=== PATIENT | male | born 1970 | race Two or more races ===

== ENCOUNTER 2017-04-03 09:32 | Emergency (ER) | payer SELFPAY ==
[~2017-04-03] VITALS: Ht 167.6 cm; Wt 73.4 kg
[2017-04-03] MEDS ORDERED: CefTRIAXone 250MG IM Kit w/LIDOcaine IM ONE (09:40)
[2017-04-03] MEDS ORDERED: azithromycin 250mg tablet PO ONE (09:40)
[2017-04-03] MEDS ORDERED: ondansetron 4mg rapidly disintigrating tab PO ONE (09:40)
[2017-04-03 10:49] LABS: CLARITY,URINE CLEAR (Clear); COLOR,URINE YELLOW (Yellow); GLUCOSE, URINE NEGATIVE (Neg); KETONES,URINE TRACE mg/dl (Neg); LEUKOCYTE ESTERASE ,URINE NEGATIVE (Neg); NITRITES, URINE NEGATIVE (Neg); OCCULT BLOOD,URINE NEGATIVE (Neg); PH,URINE 5.5 (4.8-8.0); PROTEIN,URINE NEGATIVE (Neg); UROBILINOGEN,URINE 0.2 E.U/dL (0.2-1.0)
[2017-04-03 10:50] LABS: UA COLLECTION TYPE VOIDED
[2017-04-03] MEDS ORDERED: DOXY100C43 PO (10:55)
[2017-04-03 11:20] VITALS: BP 137/80
== END 2017-04-03 11:25 | disposition home or self-care (01) ==
LOC: ER 09:37
DX: A63.8 Other specified predominantly sexually transmitted diseases (principal); F12.10 Cannabis abuse, uncomplicated; Z87.442 Personal history of urinary calculi
CPT/HCPCS: 36415; 81003; 87491; 87591; 96372; 99284; J0696

== ENCOUNTER 2017-04-17 08:21 | Emergency (ER) | payer MEDICAID ==
[~2017-04-17] VITALS: Ht 167.6 cm; Wt 73.0 kg
[2017-04-17 08:36] VITALS: BP 114/70
== END 2017-04-17 10:15 | disposition home or self-care (01) ==
LOC: ER 08:21
DX: Z11.3 Encounter for screening for infections with a predominantly sexual mode of transmission (principal); Z87.442 Personal history of urinary calculi; F12.10 Cannabis abuse, uncomplicated
CPT/HCPCS: 99281

== ENCOUNTER 2017-07-11 09:41 | Emergency (ER) | payer MEDICAID ==
[~2017-07-11] VITALS: Ht 167.6 cm; Wt 74.6 kg
[2017-07-11 09:45] VITALS: BP 137/92
== END 2017-07-11 10:01 | disposition home or self-care (01) ==
LOC: ER 09:42
DX: S00.86XA Insect bite (nonvenomous) of other part of head, initial encounter (principal); F12.10 Cannabis abuse, uncomplicated; Z87.442 Personal history of urinary calculi; W57.XXXA Bitten or stung by nonvenomous insect and other nonvenomous arthropods, initial encounter; Y93.89 Activity, other specified; Y92.89 Other specified places as the place of occurrence of the external cause; Y99.9 Unspecified external cause status
CPT/HCPCS: 99281

== ENCOUNTER 2017-09-26 07:24 | Emergency (ER) | payer MEDICAID ==
[~2017-09-26] VITALS: Ht 578.2 cm; Wt 74.0 kg
[2017-09-26] MEDS ORDERED: colchicine 0.6mg tablet PO ONE (07:30)
[2017-09-26] MEDS ORDERED: HYDROcodone/acetaminophen 10/325mg tab PO ONE (07:30)
[2017-09-26] MEDS ORDERED: NAPR-1154 PO (08:26)
[2017-09-26] MEDS ORDERED: HYDR-565 PO (08:26)
[2017-09-26] MEDS ORDERED: CEPH500C5 PO (08:28)
[2017-09-26 08:35] VITALS: BP 136/96
== END 2017-09-26 08:37 | disposition home or self-care (01) ==
LOC: ER 07:24
DX: M10.9 Gout, unspecified (principal); F12.90 Cannabis use, unspecified, uncomplicated; Z98.890 Other specified postprocedural states; Z79.899 Other long term (current) drug therapy
CPT/HCPCS: 73630; 99284

== ENCOUNTER 2018-03-10 11:08 | Emergency (ER) | payer MEDICAID ==
[~2018-03-10] VITALS: Ht 167.6 cm; Wt 75.0 kg
[~2018-03-10 11:08] MED LIST: CEPH500C5 PO; NAPR-1154 PO
[2018-03-10 11:29] VITALS: BP 138/72
[2018-03-10 12:21] LABS: CLARITY,URINE CLEAR (Clear); COLOR,URINE YELLOW (Yellow); GLUCOSE, URINE NEGATIVE (Neg); KETONES,URINE NEGATIVE (Neg); LEUKOCYTE ESTERASE ,URINE NEGATIVE (Neg); NITRITES, URINE NEGATIVE (Neg); OCCULT BLOOD,URINE NEGATIVE (Neg); PROTEIN,URINE NEGATIVE (Neg); UROBILINOGEN,URINE 0.2 E.U/dL (0.2-1.0)
[2018-03-10 12:24] LABS: UA COLLECTION TYPE CLN CATCH MIDSTREAM
== END 2018-03-10 14:00 | disposition home or self-care (01) ==
LOC: ER 11:08
DX: K64.4 Residual hemorrhoidal skin tags (principal); N34.2 Other urethritis; M54.5 Low back pain; F12.90 Cannabis use, unspecified, uncomplicated; Z79.899 Other long term (current) drug therapy; Z87.442 Personal history of urinary calculi
CPT/HCPCS: 81003; 99283

== ENCOUNTER 2018-04-13 09:00 | Emergency (ER) | payer MEDICAID ==
[~2018-04-13] VITALS: Ht 167.6 cm; Wt 76.0 kg
[2018-04-13] MEDS ORDERED: TETRACAINE 0.5% 5 ML OPHTHALMIC DROPS RIGHTEYE ONE (09:40)
[2018-04-13 10:09] VITALS: BP 125/69
[2018-04-13] MEDS ORDERED: ERYT1OIN6 RIGHTEYE (10:10)
[2018-04-13] MEDS ORDERED: erythromycin ophthalmic ointment 1gm tube RIGHTEYE ONE (10:15)
--- NOTE | 2018-04-13 15:13 | NUR ---
PT CALLED STATING HE LOST HIS RX. NEW RX CALLED TO [facility] ON [address] PER [address] FAUST. ERYTHROMYCIN OINT 1GR TUBE, TO RIGHT EYE Q4 WHILE AWAKE X 7 DAYS
== END 2018-04-13 11:13 | disposition home or self-care (01) ==
LOC: ER 09:01
DX: S00.211A Abrasion of right eyelid and periocular area, initial encounter (principal); F12.90 Cannabis use, unspecified, uncomplicated; X58.XXXA Exposure to other specified factors, initial encounter; Y93.89 Activity, other specified; Y92.89 Other specified places as the place of occurrence of the external cause; Y99.8 Other external cause status
CPT/HCPCS: 99283

== ENCOUNTER 2018-07-13 06:34 | Emergency (ER) | payer MEDICAID ==
[~2018-07-13] VITALS: Ht 167.6 cm; Wt 75.0 kg
[2018-07-13 07:02] VITALS: BP 128/86
== END 2018-07-13 07:20 | disposition home or self-care (01) ==
LOC: ER 06:35
DX: S50.861A Insect bite (nonvenomous) of right forearm, initial encounter (principal); F12.90 Cannabis use, unspecified, uncomplicated; Z98.890 Other specified postprocedural states; Z87.442 Personal history of urinary calculi; Z79.899 Other long term (current) drug therapy; W57.XXXA Bitten or stung by nonvenomous insect and other nonvenomous arthropods, initial encounter; Y93.89 Activity, other specified; Y92.89 Other specified places as the place of occurrence of the external cause; Y99.8 Other external cause status
CPT/HCPCS: 99281

== ENCOUNTER 2018-12-15 19:08 | Emergency (ER) | payer MEDICAID ==
[~2018-12-15] VITALS: Ht 167.6 cm; Wt 73.5 kg
[~2018-12-15 19:08] MED LIST changes: -CEPH500C5 PO
[2018-12-15 19:10] VITALS: BP 136/65
[2018-12-15 19:48] LABS: CLARITY,URINE CLEAR (Clear); COLOR,URINE YELLOW (Yellow); GLUCOSE, URINE NEGATIVE (Neg); KETONES,URINE NEGATIVE (Neg); LEUKOCYTE ESTERASE ,URINE NEGATIVE (Neg); NITRITES, URINE NEGATIVE (Neg); OCCULT BLOOD,URINE TRACE-INTACT (Neg); PROTEIN,URINE TRACE mg/dl (Neg); UROBILINOGEN,URINE 0.2 E.U/dL (0.2-1.0)
[2018-12-15 19:59] LABS: UA COLLECTION TYPE CLN CATCH MIDSTREAM
[2018-12-15 20:00] LABS: BACTERIA,URINE NONE SEEN /HPF (Neg); RBC,URINE 0-2 /HPF (0-2); SQUAMOUS EPITHELIAL CELL,UR FEW /LPF (FEW); WBC,URINE NONE SEEN /HPF (0-4)
[2018-12-15] MEDS ORDERED: CefTRIAXone 250MG IM Kit w/LIDOcaine IM ONE (20:05)
[2018-12-15] MEDS ORDERED: azithromycin 250mg tablet PO ONE (20:05)
== END 2018-12-15 20:31 | disposition home or self-care (01) ==
LOC: ER 19:09
DX: N50.82 Scrotal pain (principal); R30.0 Dysuria; R11.0 Nausea; Z11.3 Encounter for screening for infections with a predominantly sexual mode of transmission; F12.90 Cannabis use, unspecified, uncomplicated; F10.99 Alcohol use, unspecified with unspecified alcohol-induced disorder; Z87.442 Personal history of urinary calculi; Z98.890 Other specified postprocedural states; Z79.899 Other long term (current) drug therapy; Y90.9 Presence of alcohol in blood, level not specified
CPT/HCPCS: 36415; 81001; 87491; 87591; 96372; 99283; J0696

== ENCOUNTER 2019-01-31 08:51 | Emergency (ER) | payer MEDICAID ==
[~2019-01-31] VITALS: Ht 167.6 cm; Wt 75.0 kg
--- NOTE | 2019-01-31 09:08 | NUR ---
tiago ed provider,call light within reach.
[2019-01-31 09:58] LABS: CLARITY,URINE CLEAR (Clear); COLOR,URINE YELLOW (Yellow); GLUCOSE, URINE NEGATIVE (Neg); KETONES,URINE NEGATIVE (Neg); LEUKOCYTE ESTERASE ,URINE NEGATIVE (Neg); NITRITES, URINE NEGATIVE (Neg); OCCULT BLOOD,URINE NEGATIVE (Neg); PROTEIN,URINE NEGATIVE (Neg); UROBILINOGEN,URINE 0.2 E.U/dL (0.2-1.0)
[2019-01-31 09:59] LABS: UA COLLECTION TYPE CLN CATCH MIDSTREAM
[2019-01-31 11:06] VITALS: BP 126/69
== END 2019-01-31 11:12 | disposition home or self-care (01) ==
LOC: ER 08:52
DX: Z00.8 Encounter for other general examination (principal); R10.30 Lower abdominal pain, unspecified; R10.10 Upper abdominal pain, unspecified; M79.652 Pain in left thigh; M79.651 Pain in right thigh; F12.90 Cannabis use, unspecified, uncomplicated; Z98.890 Other specified postprocedural states; Z79.899 Other long term (current) drug therapy
CPT/HCPCS: 36415; 81003; 87491; 99283

== ENCOUNTER 2019-03-25 07:09 | Emergency (ER) | payer MEDICAID ==
[~2019-03-25] VITALS: Ht 167.6 cm; Wt 75.0 kg
[2019-03-25 07:17] VITALS: BP 118/85
[2019-03-25 08:11] LABS: CLARITY,URINE CLEAR (Clear); COLOR,URINE YELLOW (Yellow); GLUCOSE, URINE NEGATIVE (Neg); KETONES,URINE NEGATIVE (Neg); LEUKOCYTE ESTERASE ,URINE NEGATIVE (Neg); NITRITES, URINE NEGATIVE (Neg); OCCULT BLOOD,URINE NEGATIVE (Neg); PH,URINE 5.5 (4.8-8.0); PROTEIN,URINE NEGATIVE (Neg); UROBILINOGEN,URINE 0.2 E.U/dL (0.2-1.0)
[2019-03-25 08:14] LABS: UA COLLECTION TYPE CLN CATCH MIDSTREAM
[2019-03-25] MEDS ORDERED: CefTRIAXone 250MG inj IM ONE (08:15)
[2019-03-25] MEDS ORDERED: CefTRIAXone 250MG IM Kit w/LIDOcaine IM ONE (08:30)
[2019-03-25 09:14] LABS: BASOPHILS # (AUTO) 0.1 X10'3 (0-0.2); BASOPHILS % (AUTO) 0.9 % (0-1); EOSINOPHILS # (AUTO) 0.1 X10'3 (0-0.9); EOSINOPHILS % (AUTO) 1.3 % (0-6); HEMATOCRIT 41.3 % (42.0-52.0); HEMOGLOBIN 14.1 g/dl (14.0-17.9); LYMPHOCYTES # (AUTO) 2.5 X10'3 (1.1-4.8); LYMPHOCYTES % (AUTO) 27.8 % (21-51); MEAN CORPUSCULAR HEMOGLOBIN 28.8 PG (27.0-31.0); MEAN CORPUSCULAR HGB CONC 34.2 g/dL (33.0-36.5); MEAN CORPUSCULAR VOLUME 84.3 FL (78-98); MEAN PLATELET VOLUME 8.6 FL (7.4-10.4); MONOCYTES # (AUTO) 0.9 X10'3 (0-0.9); MONOCYTES % (AUTO) 10.7 % (2-12); NEUTROPHILS # (AUTO) 5.2 X10'3 (1.8-7.7); NEUTROPHILS % (AUTO) 59.3 % (42-75); PLATELET COUNT 199 X10'3 (140-440); RED CELL DISTRIBUTION WIDTH 13.6 % (11.5-14.5); WHITE BLOOD COUNT 8.8 X10'3 (4.5-11.0)
[2019-03-25 09:31] LABS: ALANINE AMINOTRANSFERASE 22 U/L (12-78); ALBUMIN 3.9 G/DL (3.4-5.0); ALBUMIN/GLOBULIN RATIO 1.6 (1.1-1.5); ALKALINE PHOSPHATASE 89 IU/L (46-116); ANION GAP 6 (8-16); ASPARTATE AMINO TRANSFERASE 19 U/L (10-37); BILIRUBIN,TOTAL 0.6 MG/DL (0.1-1.0); BLOOD UREA NITROGEN 14 MG/DL (7-18); BUN/CREATININE RATIO 15.7 (5.4-32.0); CALCIUM 9.1 MG/DL (8.5-10.1); CHLORIDE 110 MMOL/L (99-107); CREATININE 0.89 MG/DL (0.60-1.10); GLUCOSE 98 MG/DL (70-104); POTASSIUM 4.3 MMOL/L (3.5-5.1); SODIUM 145 MMOL/L (135-145); TOTAL CARBON DIOXIDE 29.2 MMOL/L (24-32); TOTAL PROTEIN 6.4 G/DL (6.4-8.2); eGFR > 90 ML/MIN
[2019-03-25] MEDS ORDERED: DOXY100C43 PO (09:49)
== END 2019-03-25 09:59 | disposition home or self-care (01) ==
LOC: ER 07:09
DX: R30.0 Dysuria (principal); R10.32 Left lower quadrant pain; F12.90 Cannabis use, unspecified, uncomplicated; Z98.890 Other specified postprocedural states; Z87.442 Personal history of urinary calculi
CPT/HCPCS: 36415; 80053; 81003; 85025; 87491; 87591; 96372; 99283; J0696

== ENCOUNTER 2019-05-15 12:17 | Emergency (ER) | payer MEDICAID ==
[~2019-05-15] VITALS: Ht 167.6 cm; Wt 78.0 kg
[2019-05-15 13:11] VITALS: BP 120/84
[2019-05-15 13:52] LABS: CLARITY,URINE CLEAR (Clear); COLOR,URINE YELLOW (Yellow); GLUCOSE, URINE NEGATIVE (Neg); KETONES,URINE NEGATIVE (Neg); LEUKOCYTE ESTERASE ,URINE NEGATIVE (Neg); NITRITES, URINE NEGATIVE (Neg); OCCULT BLOOD,URINE NEGATIVE (Neg); PH,URINE 5.5 (4.8-8.0); PROTEIN,URINE NEGATIVE (Neg); UROBILINOGEN,URINE 0.2 E.U/dL (0.2-1.0)
[2019-05-15 13:53] LABS: UA COLLECTION TYPE CLN CATCH MIDSTREAM
[2019-05-15 14:23] LABS: BASOPHILS # (AUTO) 0.1 X10'3 (0-0.2); BASOPHILS % (AUTO) 0.8 % (0-1); EOSINOPHILS # (AUTO) 0.1 X10'3 (0-0.9); HEMATOCRIT 44.1 % (42.0-52.0); LYMPHOCYTES # (AUTO) 3.6 X10'3 (1.1-4.8); LYMPHOCYTES % (AUTO) 35.1 % (21-51); MEAN CORPUSCULAR HEMOGLOBIN 28.3 PG (27.0-31.0); MEAN CORPUSCULAR VOLUME 83.3 FL (78-98); MEAN PLATELET VOLUME 8.5 FL (7.4-10.4); MONOCYTES # (AUTO) 0.6 X10'3 (0-0.9); MONOCYTES % (AUTO) 5.9 % (2-12); NEUTROPHILS # (AUTO) 5.9 X10'3 (1.8-7.7); NEUTROPHILS % (AUTO) 57.2 % (42-75); PLATELET COUNT 208 X10'3 (140-440); RED BLOOD COUNT 5.29 X10'6 (4.70-6.10); RED CELL DISTRIBUTION WIDTH 13.8 % (11.5-14.5); WHITE BLOOD COUNT 10.4 X10'3 (4.5-11.0)
[2019-05-15 14:39] LABS: ALANINE AMINOTRANSFERASE 19 U/L (12-78); ALBUMIN 4.2 G/DL (3.4-5.0); ALBUMIN/GLOBULIN RATIO 1.4 (1.1-1.5); ALKALINE PHOSPHATASE 87 IU/L (46-116); ANION GAP 8 (8-16); ASPARTATE AMINO TRANSFERASE 19 U/L (10-37); BILIRUBIN,TOTAL 0.9 MG/DL (0.1-1.0); BLOOD UREA NITROGEN 15 MG/DL (7-18); BUN/CREATININE RATIO 19.5 (5.4-32.0); CALCIUM 8.9 MG/DL (8.5-10.1); CHLORIDE 108 MMOL/L (99-107); CREATININE 0.77 MG/DL (0.60-1.10); GLUCOSE 90 MG/DL (70-104); SODIUM 144 MMOL/L (135-145); TOTAL CARBON DIOXIDE 28.2 MMOL/L (24-32); TOTAL PROTEIN 7.2 G/DL (6.4-8.2); eGFR > 90 ML/MIN
[2019-05-15 14:44] LABS: C-REACTIVE PROTEIN < 0.05 MG/DL (0.0-0.5)
[2019-05-15] MEDS ORDERED: CefTRIAXone 1000mg IM Kit (w/lidocaine diluent) IM ONE (15:40)
[2019-05-15] MEDS ORDERED: azithromycin 250mg tablet PO ONE (15:40)
== END 2019-05-15 15:58 | disposition home or self-care (01) ==
LOC: ER 12:17
DX: R36.9 Urethral discharge, unspecified (principal); K62.5 Hemorrhage of anus and rectum; F12.90 Cannabis use, unspecified, uncomplicated; Z98.890 Other specified postprocedural states; Z79.899 Other long term (current) drug therapy
CPT/HCPCS: 36415; 80053; 81003; 85025; 86140; 87491; 87591; 96372; 99283; J0696

== ENCOUNTER 2019-06-22 07:19 | Emergency (ER) | payer MEDICAID ==
[~2019-06-22] VITALS: Ht 167.6 cm; Wt 73.6 kg
[2019-06-22 07:23] VITALS: BP 125/68
[2019-06-22 07:51] LABS: CLARITY,URINE CLEAR (Clear); COLOR,URINE YELLOW (Yellow); GLUCOSE, URINE NEGATIVE (Neg); KETONES,URINE NEGATIVE (Neg); LEUKOCYTE ESTERASE ,URINE NEGATIVE (Neg); NITRITES, URINE NEGATIVE (Neg); OCCULT BLOOD,URINE NEGATIVE (Neg); PROTEIN,URINE NEGATIVE (Neg); UA COLLECTION TYPE VOIDED; UROBILINOGEN,URINE 0.2 E.U/dL (0.2-1.0)
== END 2019-06-22 09:16 | disposition home or self-care (01) ==
LOC: ER 07:20
DX: Z71.1 Person with feared health complaint in whom no diagnosis is made (principal); R36.9 Urethral discharge, unspecified; N50.89 Other specified disorders of the male genital organs; F12.90 Cannabis use, unspecified, uncomplicated; Z87.442 Personal history of urinary calculi
CPT/HCPCS: 36415; 76870; 81003; 87491; 99284

== ENCOUNTER 2019-12-23 04:01 | Emergency (ER) | payer MEDICAID ==
[~2019-12-23] VITALS: Ht 167.6 cm; Wt 79.9 kg
[2019-12-23 04:48] LABS: BASOPHILS # (AUTO) 0.1 X10'3 (0-0.2); BASOPHILS % (AUTO) 0.9 % (0-1); EOSINOPHILS # (AUTO) 0.2 X10'3 (0-0.9); EOSINOPHILS % (AUTO) 1.9 % (0-6); HEMATOCRIT 42.1 % (42.0-52.0); HEMOGLOBIN 14.4 g/dl (14.0-17.9); LYMPHOCYTES # (AUTO) 4.2 X10'3 (1.1-4.8); LYMPHOCYTES % (AUTO) 40.1 % (21-51); MEAN CORPUSCULAR HEMOGLOBIN 28.8 PG (27.0-31.0); MEAN CORPUSCULAR HGB CONC 34.2 g/dL (33.0-36.5); MEAN CORPUSCULAR VOLUME 84.2 FL (78-98); MEAN PLATELET VOLUME 8.4 FL (7.4-10.4); MONOCYTES % (AUTO) 9.8 % (2-12); NEUTROPHILS # (AUTO) 4.9 X10'3 (1.8-7.7); NEUTROPHILS % (AUTO) 47.3 % (42-75); PLATELET COUNT 207 X10'3 (140-440); RED CELL DISTRIBUTION WIDTH 13.5 % (11.5-14.5); WHITE BLOOD COUNT 10.4 X10'3 (4.5-11.0)
[2019-12-23] MEDS ORDERED: normal saline 1000ML IV soln IVB ONE (04:55)
[2019-12-23 05:03] LABS: ALANINE AMINOTRANSFERASE 23 U/L (12-78); ALBUMIN 3.5 G/DL (3.4-5.0); ALBUMIN/GLOBULIN RATIO 1.2 (1.1-1.5); ALKALINE PHOSPHATASE 101 IU/L (46-116); ANION GAP 8 (8-16); ASPARTATE AMINO TRANSFERASE 17 U/L (10-37); BILIRUBIN,TOTAL 0.3 MG/DL (0.1-1.0); BLOOD UREA NITROGEN 15 MG/DL (7-18); BUN/CREATININE RATIO 17.4 (5.4-32.0); CALCIUM 8.3 MG/DL (8.5-10.1); CHLORIDE 107 MMOL/L (99-107); CREATININE 0.86 MG/DL (0.60-1.10); GLUCOSE 125 MG/DL (70-104); LIPASE 962 U/L (73-393); POTASSIUM 3.6 MMOL/L (3.5-5.1); SODIUM 139 MMOL/L (135-145); TOTAL CARBON DIOXIDE 23.7 MMOL/L (24-32); TOTAL PROTEIN 6.5 G/DL (6.4-8.2); eGFR > 90 ML/MIN
[2019-12-23 05:07] LABS: ETHANOL < 0.010 GM/DL (0.0-0.010)
--- NOTE | 2019-12-23 05:20 | NUR ---
PT LAYING IN BED, EYES CLOSED RESPIRATIONS EVEN IN NO APPARENT DISTRESS. WILL CONTINUE TO MONITOR
--- NOTE | 2019-12-23 05:29 | NUR ---
REINFORCED NEED FOR URINE SAMPLE, PT STATES HE KNOWS HE CAN'T EVEN PEE RIGHT NOW AND TO GIVE HIM ABOUT 20 MINUTES
[2019-12-23 07:08] LABS: URINE AMPHETAMINE SCREEN NEGATIVE (Neg); URINE BARBITUATE SCREEN NEGATIVE (Neg); URINE BENZODIAZEPINES SCREEN NEGATIVE (Neg); URINE CANNABINOID SCREEN POSITIVE (Neg); URINE COCAINE SCREEN NEGATIVE (Neg); URINE METHADONE SCREEN NEGATIVE (Neg); URINE OPIATE SCREEN NEGATIVE (Neg); URINE PHENCYCLIDINE SCREEN NEGATIVE (Neg)
[2019-12-23 07:56] LABS: CLARITY,URINE CLEAR (Clear); COLOR,URINE YELLOW (Yellow); GLUCOSE, URINE NEGATIVE (Neg); KETONES,URINE NEGATIVE (Neg); LEUKOCYTE ESTERASE ,URINE NEGATIVE (Neg); NITRITES, URINE NEGATIVE (Neg); OCCULT BLOOD,URINE NEGATIVE (Neg); PH,URINE 5.5 (4.8-8.0); PROTEIN,URINE NEGATIVE (Neg); UROBILINOGEN,URINE 0.2 E.U/dL (0.2-1.0)
[2019-12-23 08:11] LABS: UA COLLECTION TYPE URINAL
[2019-12-23 08:28] VITALS: BP 148/99
[2019-12-23] MEDS ORDERED: CefTRIAXone 250MG IM Kit w/LIDOcaine IM ONE (08:35)
[2019-12-23] MEDS ORDERED: azithromycin 250mg tablet PO ONE (08:35)
[2019-12-23 08:43] LABS: OCCULT BLOOD STOOL POSITIVE (Neg)
== END 2019-12-23 09:41 | disposition home or self-care (01) ==
LOC: ER 04:02
DX: K62.5 Hemorrhage of anus and rectum (principal); N50.811 Right testicular pain; F12.90 Cannabis use, unspecified, uncomplicated; R11.10 Vomiting, unspecified; Z87.442 Personal history of urinary calculi; Z90.49 Acquired absence of other specified parts of digestive tract; Z98.890 Other specified postprocedural states; Z79.899 Other long term (current) drug therapy
CPT/HCPCS: 36415; 74176; 76870; 80053; 80305; 80320; 81003; 82272; 83605; 83690; 85025; 86885; 86900; 86901; 87491; 87591; 93976; 96360; 96361; 96372; 99285; J0696; J7030

== ENCOUNTER 2020-01-18 16:24 | Emergency (ER) | payer MEDICAID ==
[~2020-01-18] VITALS: Ht 165.1 cm; Wt 80.0 kg
--- NOTE | 2020-01-18 17:17 | NUR ---
Physical assessment deferred to provider.
[2020-01-18] MEDS ORDERED: CefTRIAXone 250MG IM Kit w/LIDOcaine IM ONE (18:15)
[2020-01-18] MEDS ORDERED: azithromycin 250mg tablet PO ONE (18:15)
[2020-01-18 18:47] LABS: CLARITY,URINE CLEAR (Clear); COLOR,URINE YELLOW (Yellow); GLUCOSE, URINE NEGATIVE (Neg); KETONES,URINE NEGATIVE (Neg); LEUKOCYTE ESTERASE ,URINE NEGATIVE (Neg); NITRITES, URINE NEGATIVE (Neg); OCCULT BLOOD,URINE NEGATIVE (Neg); PROTEIN,URINE NEGATIVE (Neg); UROBILINOGEN,URINE 0.2 E.U/dL (0.2-1.0)
[2020-01-18 18:50] LABS: UA COLLECTION TYPE CLN CATCH MIDSTREAM
[2020-01-18 19:48] VITALS: BP 125/80
== END 2020-01-18 19:51 | disposition home or self-care (01) ==
LOC: ER 16:24
DX: R10.817 Generalized abdominal tenderness (principal); R30.0 Dysuria; R42 Dizziness and giddiness; F12.90 Cannabis use, unspecified, uncomplicated; Z72.89 Other problems related to lifestyle; Z98.890 Other specified postprocedural states; Z79.899 Other long term (current) drug therapy
CPT/HCPCS: 36415; 81003; 87491; 87591; 96372; 99283; J0696

== ENCOUNTER 2023-03-15 14:53 | Emergency (ER) | payer SELFPAY ==
[~2023-03-15] VITALS: Ht 162.6 cm; Wt 75.6 kg
[2023-03-15 15:59] VITALS: BP 147/90; PULSE 58; RESP 18; TEMP 98.5; O2SAT 100
== END 2023-03-15 17:18 | disposition left against medical advice (07) ==
LOC: ER 14:53
DX: K62.89 Other specified diseases of anus and rectum (principal); Z53.21 Procedure and treatment not carried out due to patient leaving prior to being seen by health care provider
CPT/HCPCS: 99281

== ENCOUNTER 2023-04-26 11:44 | Emergency (ER) | payer SELFPAY ==
[~2023-04-26] VITALS: Ht 167.6 cm; Wt 75.6 kg
[2023-04-26 11:52] VITALS: BP 129/67; PULSE 68; RESP 16; TEMP 98; O2SAT 100
[2023-04-26 12:29] LABS: ALBUMIN 4.1 G/DL (3.4-5.0); ANION GAP 8 (8-16); BLOOD UREA NITROGEN 10 MG/DL (7-18); CHLORIDE 106 MMOL/L (99-107); CREATININE 0.83 MG/DL (0.60-1.10); GLUCOSE 109 MG/DL (70-104); POTASSIUM 3.9 MMOL/L (3.5-5.1); SODIUM 141 MMOL/L (135-145); TOTAL CARBON DIOXIDE 26.6 MMOL/L (24-32); eCRCL 95 ML/MIN; eGFR > 90 ML/MIN
[2023-04-26 12:30] LABS: BASOPHILS # (AUTO) 0.1 X10'3 (0-0.2); BASOPHILS % (AUTO) 0.8 % (0-1); EOSINOPHILS # (AUTO) 0.1 X10'3 (0-0.9); EOSINOPHILS % (AUTO) 0.7 % (0-6); HEMATOCRIT 43.1 % (42.0-52.0); HEMOGLOBIN 14.6 g/dl (14.0-17.9); LYMPHOCYTES # (AUTO) 2.6 X10'3 (1.1-4.8); LYMPHOCYTES % (AUTO) 27.4 % (21-51); MEAN CORPUSCULAR HEMOGLOBIN 28.8 PG (27.0-31.0); MEAN CORPUSCULAR VOLUME 84.7 FL (78-98); MEAN PLATELET VOLUME 8.1 FL (7.4-10.4); MONOCYTES # (AUTO) 0.6 X10'3 (0-0.9); MONOCYTES % (AUTO) 6.5 % (2-12); NEUTROPHILS # (AUTO) 6.2 X10'3 (1.8-7.7); NEUTROPHILS % (AUTO) 64.6 % (42-75); PLATELET COUNT 267 X10'3 (140-440); RED BLOOD COUNT 5.09 X10'6 (4.70-6.10); RED CELL DISTRIBUTION WIDTH 14.2 % (11.5-14.5); WHITE BLOOD COUNT 9.6 X10'3 (4.5-11.0)
== END 2023-04-26 15:34 | disposition left against medical advice (07) ==
LOC: ER 11:45
DX: K62.5 Hemorrhage of anus and rectum (principal); Z53.21 Procedure and treatment not carried out due to patient leaving prior to being seen by health care provider
CPT/HCPCS: 36415; 80048; 85025; 99281

== ENCOUNTER 2024-11-30 12:10 | Emergency (ER) | payer MEDICAID, OTHER ==
[~2024-11-30] VITALS: Ht 167.6 cm; Wt 68.9 kg
[2024-11-30 12:19] VITALS: BP 124/79; PULSE 70; RESP 18; O2SAT 100
[2024-11-30] MEDS ORDERED: CIPR-458 PO (12:42)
[2024-11-30] MEDS ORDERED: DOXY-460 PO (12:42)
--- NOTE | 2024-11-30 12:42 | Physician Documentation ---
History of Present Illness ~ Chief Complaint: STD Stated Complaint: NOT FEELING WELL Time Seen by MD: 12:37 Primary Medical Doctor: none HPI 53-year-old male presents complaining of dysuria penile discharge and burning urinary output Day of Onset: Nov 30, 2024 Medication Reconciliation Allergies: Coded Allergies: No Known Allergies (Unverified , 04/13/18) Scheduled Doxycycline Monohydrate (Doxycycline Monohydrate), 1 CAP PO Q12H Naproxen (Naprosyn), 1 TAB PO Q12H Past Medical History Past Medical History: Hemorrhoids, Kidney Stones Past Surgical History: orthopedic surgeries Alcohol Use: Occasionally Drug Use: marijuana Lives with: Family Lives In: Home Occupation: employed Review of Systems All Other Systems at this time: Reviewed and Negative ROS As stated above in the HPI, otherwise all systems are reviewed and negative. Physical Exam Vital Signs: Temperature: 97.6, Heart Rate: 70, Respiratory Rate: 18, BP: 124/79, Pulse Oximetry: 100, Weight: 68.900 Oxygen Flow Rate: 0 Physical Exam General: Alert, no apparent distress. HEENT: PERRL, EOMI, no injection, moist mucous membranes. Neck: Full range of motion. Respiratory: Lungs clear, no respiratory distress. Chest: No accessory muscle use. Cardiovascular: Regular rate and rhythm, no murmurs. Gastrointestinal: Soft, nontender, nondistended. Bowels sounds present. Extremities: Normal range of motion, no deformity. Neurologic: Oriented x4. Psychiatric: Normal mood and affect. Skin: Normal color, warm and dry. No edema, no ecchymosis. Progress Results/Orders Results/Orders Orders - CARLTON WEISS [employer] PERSON Chlam/Gc Amp Ur (11/30/24 12:28) Completed Orders - CARLTON WEISS NP Ceftriaxone 250 Im W/Lidocaine (Rocephin (11/30/24 12:50) Medications Received in ER Medications (Trade) Dose Ordered Sig/Noé Route PRN Reason Start Time Stop Time Status Last Admin Dose Admin (Rocephin 250MG IM kit (w/1% LIDOcaine)) 500 mg ONCE ONCE IM 11/30/24 12:50 11/30/24 12:51 DC 11/30/24 13:08 500 MG Vital Signs 11/30/24 11/30/24 12:19 13:15 Temp 97.6 97.6 Pulse 70 Resp 18 B/P (MAP) 124/79 Pulse Ox 100 O2 Flow Rate 0 Laboratory Tests Test 11/30/24 12:45 Medical Decision Making Findings treated empirically .patient left lobby Departure Disposition: HOME / SELF CARE / HOMELESS Impression: Primary Impression: Sexually transmitted disease Condition: Stable Discharge Instructions: Chlamydia, Male, Sexually Transmitted Disease Referrals: NO PRIMARY CARE PROVIDER (PCP) Prescriptions Doxycycline Monohydrate (Doxycycline Monohydrate) 100 Mg Capsule 1 CAP PO Q12H for 10 Days, #20 CAP Prov: CARLTON WEISS NP 11/30/24 Education Educated: Patient Signature Scribe Signature: b Attestation: Scribed for Carlton Weiss Enroute Controller by Carlton Weiss - ALAINA . 11/30/24 18:04 CARLTON WEISS NP Nov 30, 2024 12:42
[2024-11-30] MEDS: CefTRIAXone 250MG IM Kit w/LIDOcaine IM ONE (13:08)
[2024-11-30 13:15] VITALS: TEMP 97.6
== END 2024-11-30 13:16 | disposition home or self-care (01) ==
LOC: ER 12:10
DX: A64 Unspecified sexually transmitted disease (principal); F12.90 Cannabis use, unspecified, uncomplicated; Z87.442 Personal history of urinary calculi; Z72.89 Other problems related to lifestyle; Z79.899 Other long term (current) drug therapy
CPT/HCPCS: 36415; 87491; 87591; 96372; 99283; J0696

== ENCOUNTER 2024-12-29 10:38 | Emergency (ER) | payer MEDICAID ==
[~2024-12-29] VITALS: Ht 167.6 cm; Wt 77.3 kg
[2024-12-29 10:40] VITALS: BP 144/87; PULSE 79; RESP 16; TEMP 98.2; O2SAT 99
== END 2024-12-29 13:13 | disposition left against medical advice (07) ==
LOC: ER 10:39
DX: R10.9 Unspecified abdominal pain (principal)
CPT/HCPCS: 99281

== ENCOUNTER 2024-12-31 10:40 | Emergency (ER) | payer MEDICAID ==
[~2024-12-31] VITALS: Ht 175.3 cm; Wt 86.4 kg
[2024-12-31 10:55] VITALS: BP 139/80; PULSE 71; RESP 18; TEMP 97.8; O2SAT 99
--- NOTE | 2024-12-31 10:55 | Physician Documentation ---
History of Present Illness Stated Complaint: RECHECK Primary Medical Doctor: none HPI 54-year-old male who presents to the emergency department for persisting abdominal pain. He was seen in his emergency department two days ago, and at that time he was complaining of abdominal pain, but ultimately left without being seen. His lipase was noted to be elevated over 900 at that time. Evidently, he got a phone call and was instructed to return for re-evaluation. Denies alcohol use or hx of abdominal surgeries. Medication Reconciliation Allergies: Coded Allergies: No Known Allergies (Unverified , 12/31/24) Scheduled Naproxen (Naprosyn), 1 TAB PO Q12H Past Medical History Past Medical History: Hemorrhoids, Kidney Stones Past Surgical History: orthopedic surgeries Alcohol Use: Occasionally Drug Use: marijuana Lives with: Family Lives In: Home Occupation: employed Review of Systems ROS As stated above in the HPI, otherwise all systems are reviewed and negative. Physical Exam Physical Exam General: Alert, no apparent distress. Neck: Full range of motion. Respiratory: Lungs clear, no respiratory distress. Chest: No accessory muscle use. Cardiovascular: Regular rate and rhythm, no murmurs. Gastrointestinal: Soft, TTP lower abdomen, nondistended. Bowels sounds present. Extremities: Normal range of motion, no deformity. Neurologic: Oriented x4. Psychiatric: Normal mood and affect. Skin: Normal color, warm and dry. No edema, no ecchymosis. Medical Decision Making Additional Comments Patient was seen and examined by myself in triage. He had numerous questions about why his lipase was elevated. In the context of answering any questions, and discussing with the patient that repeat labs are necessary, and potentially imaging of the abdomen with a CT scan, he stated that he had an appointment with his primary care provider tomorrow, prefers to keep that and not have an ER workup. The patient then departed after being seen and examined. Departure Time of Disposition: 11:01 Disposition: 01 HOME / SELF CARE / HOMELESS Impression: Primary Impression: Abdominal pain Additional Impression: Elevated lipase Condition: Stable Discharge Instructions: Acute Pancreatitis Additional Instructions: Patient left prior to receiving departure packet/instructions. Referrals: NO PRIMARY CARE PROVIDER (PCP) Education Educated: Patient Educated regarding: diagnosis, treatment, prognosis, need for follow up Signature Scribe Signature: x Attestation: The note accurately reflects work and decisions made by me.Ashley Fine NP 12/31/24 11:00 ASHLEY SERRATO NP Dec 31, 2024 10:55
== END 2024-12-31 11:06 | disposition home or self-care (01) ==
LOC: ER 10:40
DX: R10.9 Unspecified abdominal pain (principal); R74.8 Abnormal levels of other serum enzymes; F12.90 Cannabis use, unspecified, uncomplicated; Z87.440 Personal history of urinary (tract) infections
CPT/HCPCS: 99282